=== PATIENT | female | born 1970 | race Caucasian/White ===

== ENCOUNTER → 2016-04-01 | Outpatient (CLI) | payer OTHER, MEDICARE ==
--- NOTE | 2016-04-02 07:52 | XR ---
EXAMINATION TYPE: XR wrist complete RT DATE OF EXAM: 04/01/2016 1:21 PM CLINICAL HISTORY: pain TECHNIQUE: Frontal, lateral and oblique images of the right wrist are obtained. COMPARISON: None. FINDINGS: There is no acute fracture/dislocation evident. The joint spaces appear within normal limits. The o verlying soft tissue appears unremarkable. IMPRESSION: There is no acute fracture or dislocation seen. ICD 10 NO FRACTURE, INITIAL EVALUATION
== END | disposition home or self-care (01) ==
LOC: RADXRYALE 13:06
PROVIDERS: ATTEND Internal Medicine
DX: M25.531 Pain in right wrist (principal)

== ENCOUNTER → 2016-05-31 | Outpatient (CLI) | payer OTHER, MEDICARE ==
--- NOTE | 2016-05-31 10:04 | MM ---
Reason for exam: additional evaluation requested from prior study. Last mammogram was performed 1 year and 3 months ago. History: Patient is postmenopausal. Family history of breast cancer in mother, breast cancer in grandmother, and breast cancer in aunt. 2 benign excisional biopsies of the left breast, 2005. Took hormonal contraceptives for 11 years beginning at age 13. Physical Findings: Nurse did not find any significant physical abnormalities on exam. MG 3D Diag Mammo W/Cad GHADA Bilateral CC and MLO view(s) were taken. Prior study comparison: March 07, 2015, bilateral MG 3d screening mammo w/cad. February 12, 2013, CAD bilateral diagnostic mammogram. There are scattered fibroglandular densities. No significant new findings when compared with previous films. These results were verbally communicated with the patient and result sheet given to the patient on 05/31/16. ASSESSMENT: Benign, BI-RAD 2 RECOMMENDATION: Routine screening mammogram of both breasts in 1 year. Manage patient on a clinical basis.
== END | disposition home or self-care (01) ==
LOC: RADMAMWWP 08:54
PROVIDERS: ATTEND Internal Medicine
DX: R92.8 Other abnormal and inconclusive findings on diagnostic imaging of breast (principal)
CPT/HCPCS: G0204; G0279

== ENCOUNTER → 2016-06-04 | Outpatient (CLI) | payer OTHER, MEDICARE ==
--- NOTE | 2016-06-07 07:06 | XR ---
EXAMINATION TYPE: XR pelvis AP view DATE OF EXAM: 06/04/2016 9:26 AM CLINICAL HISTORY: Pelvic with chronic hip and back pain. TECHNIQUE: A single AP view of the pelvis is obtained. COMPARISON: None. FINDINGS: There is no acute fracture/dislocation evident in the pelvis. The hip and sacroiliac join ts appear symmetric and unremarkable. The pubic symphysis is maintained. Tubal ligation clips overlie the pelvis. Surgical changes lumbosacral junction with disc material is present. IMPRESSION: There is no acute fracture or dislocation in the pelvis. No suspicious degenerative rodriguez ges are present.
--- NOTE | 2016-06-07 07:08 | XR ---
EXAMINATION TYPE: XR lumbar spine 2 or 3V DATE OF EXAM: 06/04/2016 9:26 AM CLINICAL HISTORY: Chronic low back pain. TECHNIQUE: Frontal and lateral images of the lumbar spine are obtained. COMPARISON: Prior lumbar spine x-ray November 24, 2013 FINDINGS: There are 5 lumbar type vertebral bodies identified. The lumbar spine redemonstrates sati sfactory alignment without evidence of acute fracture or dislocation. There is interval removal of po sterior fusion hardware L5-S1 level. Laminectomy defects and spinous process resection L5 level is re demonstrated. Artificial disc material at this level is stable. Vertebral body heights heights are wi thin normal limits. There is mild disc space narrowing upper lumbar levels. There is mild to moderat e disc space narrowing with endplate sclerosis and spurring at T12-L1 level. Cholecystectomy clips ar e noted in overlying soft tissue. Tubal ligation clips overlie the pelvis. IMPRESSION: Interval removal of posterior fusion hardware at lumbosacral junction. Stable multilevel degenerative changes in the upper lumbar spine are seen as detailed above.
== END ==
LOC: RADXRYALE 09:02
PROVIDERS: ATTEND Neurological Surgery
DX: M25.559 Pain in unspecified hip (principal); M47.816 Spondylosis without myelopathy or radiculopathy, lumbar region; Z98.1 Arthrodesis status
CPT/HCPCS: 72100; 72170

== ENCOUNTER → 2016-07-26 | Outpatient (CLI) | payer OTHER, MEDICARE ==
--- NOTE | 2016-07-26 10:45 | USB ---
Reason for exam: follow-up at short interval from prior study. History: Patient is postmenopausal. Family history of breast cancer in mother, breast cancer in grandmother, and breast cancer in aunt. 2 benign excisional biopsies of the left breast, 2005. Took hormonal contraceptives for 11 years beginning at age 13. Physical Findings: Nurse did not find any significant physical abnormalities on exam. US Breast Limited BILAT Right breast ultrasound includes all four quadrants, the retroareolar region and axilla. Finding demonstrates a 7 x 4 x 6mm oval, cystic lesion at 6 o'clock, a 5 x 3 x 5mm oval, cystic lesion at 8 o'clock and a 4 x 4mm oval, lymph node at 10 o'clock. Left breast ultrasound demonstrates no cystic or solid lesion seen. These results were verbally communicated with the patient and result sheet given to the patient on 07/26/16. ASSESSMENT: Benign, BI-RAD 2 RECOMMENDATION: Clinical management of both breasts. Manage patient on a clinical basis.
== END | disposition home or self-care (01) ==
LOC: RADUSWWP 09:15
PROVIDERS: ATTEND Internal Medicine
DX: R92.8 Other abnormal and inconclusive findings on diagnostic imaging of breast (principal)

== ENCOUNTER → 2019-01-02 | Outpatient (CLI) | payer OTHER, MEDICARE ==
--- NOTE | 2019-01-02 11:30 | US ---
EXAMINATION TYPE: US transvaginal DATE OF EXAM: 01/02/2019 COMPARISON: Pelvic ultrasound dated 11/12/2009 CLINICAL HISTORY: N83.209 CYST OF OVARY. hysterectomy, recent MRI at showed 5cm ov cyst, no pelvi c pain. TECHNIQUE: TV. Transvaginal sonographic images Date of LMP: hysterectomy EXAM MEASUREMENTS: Uterus: Surgically absent Endometrial Stripe: Surgically absent Right Ovary: 7.0 x 5.0 x 4.4 cm Left Ovary: 3.0 x 2.2 x 2.0 cm 1. Uterus: Surgically absent 2. Endometrium: Surgically absent 3. Right Ovary: The right ovary contains numerous follicles versus a single complex right ovarian mul ticystic mass with numerous septations measuring at least 5.7 x 5.4 x 4.7cm with some loculated compo nents containing internal debris. Solid vascular component measuring 2.8cm on image 27/37. 4. Left Ovary: 2.4 x 1.8 x 1.6cm complex cyst seen Spectral, color and waveform doppler imaging shows good arterial and venous flow within the ovaries ; there is no evidence for ovarian torsion. 5. Bilateral Adnexa: WNL 6. Posterior cul-de-sac: WNL IMPRESSION: 1. Complex at least 5.7 cm with a solid nodule and numerous internal septations versus numerous folli cles. Contrast enhanced MRI is recommended as well as surgical/oncological consultation. 2. Complex left ovarian lesion measuring 2.3 cm appears as a hemorrhagic cyst or endometrioma. 3. Surgical absence of the uterus.
== END | disposition home or self-care (01) ==
LOC: RADUSWWP 09:56
PROVIDERS: ATTEND Internal Medicine
DX: N83.9 Noninflammatory disorder of ovary, fallopian tube and broad ligament, unspecified (principal); Z90.710 Acquired absence of both cervix and uterus
CPT/HCPCS: 76830

== ENCOUNTER → 2019-01-19 | Outpatient (CLI) | payer OTHER, MEDICARE ==
--- NOTE | 2019-01-19 14:20 | MM ---
Reason for exam: screening (asymptomatic). Last mammogram was performed 2 years and 8 months ago. History: Patient is postmenopausal. Family history of breast cancer in mother, breast cancer in grandmother, and breast cancer in aunt. 2 benign excisional biopsies of the left breast, 2005. Took hormonal contraceptives for 11 years beginning at age 13. Physical Findings: A clinical breast exam by your physician is recommended on an annual basis and results should be correlated with mammographic findings. MG 3D Screening Mammo W/Cad Bilateral CC and MLO view(s) were taken. Prior study comparison: May 31, 2016, bilateral MG 3d diag mammo w/cad GHADA. March 07, 2015, bilateral MG 3d screening mammo w/cad. There are scattered fibroglandular densities. No suspicious abnormality. No significant changes when compared with prior studies. ASSESSMENT: Negative, BI-RAD 1 RECOMMENDATION: Routine screening mammogram of both breasts in 1 year.
== END | disposition home or self-care (01) ==
LOC: RADMAMWWP 10:58
PROVIDERS: ATTEND Internal Medicine
DX: Z12.31 Encounter for screening mammogram for malignant neoplasm of breast (principal)
CPT/HCPCS: 77063; 77067

== ENCOUNTER → 2019-01-26 | Outpatient (CLI) | payer OTHER, MEDICARE ==
--- NOTE | 2019-01-26 15:33 | MR ---
EXAMINATION TYPE: MR pelvis wo/w con DATE OF EXAM: 01/26/2019 12:08 PM COMPARISON: Pelvic ultrasound dated 01/02/2019 HISTORY: Unspecified ovarian cyst, right side TECHNIQUE: Multiplanar multiecho imaging of the pelvis was performed without and subsequently with i ntravenous contrast. Contrast used was 7.5 mL of Gadavist. FINDINGS: Motion artifact limits imaging. Corresponding to the complex mass of the ultrasound of 01/02/2019 within the right ovary there is a h eterogenous complex 5.8 x 3.3 x 4.1 cm mass of the right ovary with numerous internal septations. Int ernal cystic and hemorrhagic components are seen with some areas that are T1 hyperintense on precontr ast imaging and some that are hypointense. T2 hyperintense cystic components are seen on sagittal T2 image 22. Enhancement of one of the septations is also seen on sagittal fat-sat postcontrast T1-weigh faisal image 22 and nodular enhancement of mural nodules on image 20 and image 21. There is also nodular enhancement anteriorly on image 26. Coronal T2 fat sat image 26 demonstrates the numerous internal s eptations. Surgical clips within the left hemipelvis creates susceptibility artifact partially limiting evaluati on of the left ovary. No gross evidence of abnormal contrast enhancement is seen on postcontrast imag es of the left ovary. Left ovary appears to measure approximately 2.1 x 2.9 cm. It is difficult to as sess whether there is T2 shading to evaluate for endometrioma. Given the adjacent susceptibility kathy fact and obscuration. Few sigmoid diverticula are seen. There are mild degenerative changes of the hips. Degenerative disc disease at L5-S1 is noted. IMPRESSION: 1. Confirmation of a suspicious complex mass of the right ovary with enhancement of few internal sept ations and 2 enhancing mural nodules. This measures up to 5.8 cm. [employer] surgical oncologic consultat ion is again recommended. 2. Left ovary is largely obscured by susceptibility artifact from surgical clips in the left hemipelv is. The possible hemorrhagic cyst or endometrioma is not well-visualized that was seen on the ultraso und of 01/02/2019.
== END | disposition home or self-care (01) ==
LOC: RADMRIMAIN 10:45
PROVIDERS: ATTEND Internal Medicine
DX: N83.201 Unspecified ovarian cyst, right side (principal)
CPT/HCPCS: 72197; A9585

== ENCOUNTER → 2019-09-05 | Outpatient (CLI) | payer OTHER, MEDICARE ==
--- NOTE | 2019-09-05 13:51 | MR ---
EXAMINATION TYPE: MR lumbar spine wo con DATE OF EXAM: 09/05/2019 COMPARISON: Prior MRI lumbar spine August 24, 2013. Prior lumbar spine x-ray June 04, 2016. HISTORY: Stenosis TECHNIQUE: Multiplanar, multisequence imaging of the lumbar spine is performed without IV contrast. FINDINGS: Sagittal images of the lumbar spine show vertebral body heights and alignment to remain sat isfactory. Multilevel disc desiccation with progression from 2014 MRI. There is artifact from artifi cial disc material L5-S1 level otherwise disc space heights are well-maintained. The conus medullaris remains normal in position and signal ending at L1 level. The bone marrow signal intensity is withi n normal limits. Axial images at the T12-L1 level shows mild broad-based disc bulge minimally effacing the anterior th ecal sac new from prior. Axial images at the L1-L2 level show [id number] broad disc bulge mildly effacing the anterior t hecal sac from prior single sagittal image 8. Axial images at L2-L3 level show mild broad disc bulge mildly effacing the anterior thecal sac from p rior. Axial images at L3-L4 level show mild broad disc bulge mildly effaces the anterior thecal sac with mi ld facet degenerative changes bilaterally. Progression in findings from prior study noted. Axial images at L4-L5 level show moderate right greater than left facet degenerative changes progress ed from prior with moderate broad-based posterior disc protrusion progressed from prior. There is min imal effacement of the anterior thecal sac. There is moderate left and mild right-sided anterior infe rior neural foraminal narrowing. Encroachment in the exiting left L4 nerve is thought present axial i mage 13 and sagittal image 3 on current study. Correlate clinically. Axial images at the L5-S1 level show artifact from disc material. There are left sided laminectomy de fect and spinous process resection. Left-sided scar tissue is seen. Spinal canal is preserved. Modera te facet degenerative changes bilaterally show interval progression. Marginal spurring causes moderat e greater than right neural foraminal narrowing. No suspicious incidental retroperitoneal findings. IMPRESSION: Increasing multilevel degenerative changes as detailed above with particular attention to the L4-L5 level with disc herniation appears to be encroaching on the exiting left L4 nerve.
== END | disposition home or self-care (01) ==
LOC: RADMRIMAIN 12:50
PROVIDERS: ATTEND Neurological Surgery
DX: M48.061 Spinal stenosis, lumbar region without neurogenic claudication (principal); M48.07 Spinal stenosis, lumbosacral region; M51.26 Other intervertebral disc displacement, lumbar region; M47.896 Other spondylosis, lumbar region
CPT/HCPCS: 72148

== ENCOUNTER → 2019-12-27 | Outpatient (CLI) | payer OTHER, MEDICARE ==
--- NOTE | 2019-12-27 17:06 | XR ---
EXAMINATION TYPE: XR lumbar spine 2 or 3V DATE OF EXAM: 12/27/2019 COMPARISON: 06/04/2016 HISTORY: Intractable back pain TECHNIQUE: Three-view lumbar spine FINDINGS: No acute changes are evident. Postsurgical changes are present L4-5. Laminectomy L3-L5 is e vident. A minimal retrolisthesis of L2 on L3 is present. There is disc spacers at L4-5 and L5-S1. Melida tebral body heights appear preserved. Disc narrowing is present posteriorly L3-4 and L2-3 IMPRESSION: 1. Degenerative disc changes L2-3 L3-4. 2. Minimal retrolisthesis of L2 on L3, present previously. 3. Postsurgical changes L4-5 with laminectomy at L3-L5
== END | disposition home or self-care (01) ==
LOC: RADXRMAIN 10:41
PROVIDERS: ATTEND Neurological Surgery
DX: M51.36 Other intervertebral disc degeneration, lumbar region (principal); M43.16 Spondylolisthesis, lumbar region; Z98.890 Other specified postprocedural states; Z98.1 Arthrodesis status
CPT/HCPCS: 72100

== ENCOUNTER → 2020-04-21 | Outpatient (CLI) | payer OTHER, MEDICARE ==
--- NOTE | 2020-04-22 09:52 | MM ---
Reason for exam: screening (asymptomatic). Last mammogram was performed 1 year and 3 months ago. History: Patient is postmenopausal. Family history of breast cancer in mother, breast cancer in grandmother, and breast cancer in aunt. 2 benign excisional biopsies of the left breast, 2005. Took hormonal contraceptives for 11 years beginning at age 13. Physical Findings: A clinical breast exam by your physician is recommended on an annual basis and results should be correlated with mammographic findings. MG 3D Screening Mammo W/Cad Bilateral CC and MLO view(s) were taken. Prior study comparison: January 19, 2019, bilateral MG 3d screening mammo w/cad. May 31, 2016, bilateral MG 3d diag mammo w/cad GHADA. The breast tissue is heterogeneously dense. This may lower the sensitivity of mammography. There is no discrete abnormality. No significant changes when compared with prior studies. ASSESSMENT: Negative, BI-RAD 1 RECOMMENDATION: Routine screening mammogram of both breasts in 1 year.
== END | disposition home or self-care (01) ==
LOC: RADMAMWWP 09:42
PROVIDERS: ATTEND Internal Medicine
DX: Z12.31 Encounter for screening mammogram for malignant neoplasm of breast (principal)
CPT/HCPCS: 77063; 77067

== ENCOUNTER → 2020-06-12 | Outpatient (CLI) | payer OTHER, MEDICARE ==
--- NOTE | 2020-06-12 12:34 | XR ---
EXAMINATION TYPE: XR thoracic spine complete DATE OF EXAM: 06/12/2020 CLINICAL HISTORY: pain TECHNIQUE: Frontal, lateral, and swimmer's view of thoracic spine are obtained. COMPARISON: None. FINDINGS: Thoracic spine show satisfactory alignment without evidence of acute fracture or dislocatio n. Vertebral body heights are preserved. Mild scattered degenerative disc space narrowing and spondy losis. Visualized ribs are unremarkable. IMPRESSION: No acute fracture or dislocation is seen in the thoracic spine. ICD 10 NO FRACTURE, INIT IAL EVALUATION
--- NOTE | 2020-06-12 12:36 | XR ---
EXAMINATION TYPE: XR lumbar spine 2 or 3V DATE OF EXAM: 06/12/2020 CLINICAL HISTORY: 12/27/2019 TECHNIQUE: Three views of the lumbar spine are submitted. COMPARISON: None. FINDINGS: Postoperative changes of lumbar laminectomy and fusion at L4-5 and L5-S1. Pedicular screws in place. Intervertebral body stabilizer's are noted. Overall no change from prior examination. IMPRESSION: Stable postoperative appearance of the lumbar spine.
== END | disposition home or self-care (01) ==
LOC: RADXRMAIN 10:23
PROVIDERS: ATTEND Neurological Surgery
DX: M54.6 Pain in thoracic spine (principal)
CPT/HCPCS: 72072; 72100

== ENCOUNTER → 2020-08-20 | Outpatient (CLI) | payer OTHER, MEDICARE ==
--- NOTE | 2020-08-20 16:31 | XR ---
EXAMINATION TYPE: XR wrist complete LT DATE OF EXAM: 08/20/2020 CLINICAL HISTORY: Pain in the scaphoid area after fall 3 weeks ago TECHNIQUE: Frontal, lateral and oblique images of the left wrist are obtained. COMPARISON: None. FINDINGS: No evidence of acute fracture or dislocation of the left wrist. The distal radius, ulna, ca rpals and proximal metacarpals are in alignment. Soft tissues are unremarkable. No radiopaque foreign body. IMPRESSION: 1. No evidence of fracture or dislocation of the left wrist.
== END | disposition home or self-care (01) ==
LOC: RADXRYALE 09:30
PROVIDERS: ATTEND Internal Medicine
DX: M25.532 Pain in left wrist (principal); W19.XXXA Unspecified fall, initial encounter

== ENCOUNTER → 2021-06-15 | Outpatient (CLI) | payer MEDICARE | END | disposition home or self-care (01) | LOC: LABWHC1 10:35 | PROVIDERS: ATTEND Nurse Practitioner | DX: R00.2 Palpitations (principal) | CPT/HCPCS: 36415; 84443 ==

== ENCOUNTER → 2021-08-27 | Outpatient (CLI) | payer MEDICARE ==
--- NOTE | 2021-08-28 05:13 | MR ---
EXAMINATION TYPE: MR knee RT wo con DATE OF EXAM: 08/27/2021 COMPARISON: None HISTORY: UNILATERAL PRIMARY OSTEOARTHRITIS,RIGHT KNEE Multiplanar multi echo imaging of the right knee with no contrast. There is moderate edema in the subcutaneous fat around the knee. There is edema and fluid anterior to the patella. This could be patella bursitis. The anterior and posterior cruciate ligaments are intact. There is knee joint effusion. There is hori zontal tear through the posterior horn of the lateral meniscus. There is extensive tear of the anteri or horn of the lateral meniscus. There is small intrasubstance horizontal tear of the posterior horn medial meniscus. The medial collateral ligament is intact. There is some thickening and edema in the lateral collatera l ligament. No fracture seen. There is minimal spurring of the femoral and tibial condyles. IMPRESSION: Complex tears of the anterior and posterior horn of the lateral meniscus. Small intrasubstance tear p osterior horn medial meniscus. Knee joint effusion. Fluid anterior to the patella consistent with patellar bursitis. There is eviden ce of significant tear of the lateral collateral ligament.
== END | disposition home or self-care (01) ==
LOC: RADMRIMAIN 11:08
PROVIDERS: ATTEND Orthopaedic Surgery
DX: S83.421A Sprain of lateral collateral ligament of right knee, initial encounter (principal); S83.281A Other tear of lateral meniscus, current injury, right knee, initial encounter; S83.241A Other tear of medial meniscus, current injury, right knee, initial encounter

== ENCOUNTER → 2021-10-15 | Outpatient (CLI) | payer MEDICARE ==
--- NOTE | 2021-10-15 14:22 | US ---
EXAMINATION TYPE: US venous doppler duplex LE RT DATE OF EXAM: 10/15/2021 9:28 AM COMPARISON: NONE CLINICAL HISTORY: 51-year-old female I80.9 THROMBOPHLEBITIS. Patient had knee surgery on 08/26/21. No h x of DVT. SIDE PERFORMED: Right TECHNIQUE: The lower extremity deep venous system is examined utilizing real time linear array sonog shelby with graded compression, doppler sonography and color-flow sonography. FINDINGS: VESSELS IMAGED: Common Femoral Vein Deep Femoral Vein Greater Saphenous Vein * Femoral Vein Popliteal Vein Small Saphenous Vein * Proximal Calf Veins (* superficial vessels) Right Leg: No evidence of DVT in veins imaged at this time. Limited visibility of peroneal veins at the ankle level due to edema. IMPRESSION: Some limitation at the ankle due to soft tissue swelling. Otherwise, no evidence for DVT within the r ight lower extremity.
== END | disposition home or self-care (01) ==
LOC: RADUSWWP 09:02
PROVIDERS: ATTEND Orthopaedic Surgery
DX: M17.11 Unilateral primary osteoarthritis, right knee (principal); I80.9 Phlebitis and thrombophlebitis of unspecified site; M22.2X1 Patellofemoral disorders, right knee; F17.210 Nicotine dependence, cigarettes, uncomplicated; E78.5 Hyperlipidemia, unspecified; I51.9 Heart disease, unspecified; Z68.33 Body mass index [BMI] 33.0-33.9, adult; Z48.89 Encounter for other specified surgical aftercare

== ENCOUNTER → 2023-05-16 | Outpatient (CLI) | payer MEDICARE ==
--- NOTE | 2023-05-16 11:00 | CT ---
EXAMINATION TYPE: CT pelvis wo con DATE OF EXAM: 05/16/2023 COMPARISON: Radiograph same day HISTORY: 52-year-old female M48.07, SPINAL STENOSIS, LUMBOSACRAL REGION TECHNIQUE: Contiguous axial scanning of the pelvis without IV contrast. Coronal and sagittal reconstr uctions performed. 3-D reconstructions generated on a dedicated independent workstation. CT DLP: 584 mGycm Automated exposure control for dose reduction was used. FINDINGS: Lying cecum. Prominent fluid-filled small bowel loops seen low in the pelvis. Uterus appears surgical ly absent. L4-L5 and L5-S1 interbody fusion changes are demonstrated. Corresponding laminectomy and hypertrophic facet arthropathy. Lumbar spine is incompletely visualized. Sacrum and SI joints appear intact. Hips appear symmetric and intact as does the pubic symphysis. No acute fracture is seen. IMPRESSION: 1. PARTIAL VISUALIZATION OF PREVIOUS LUMBAR SURGERY WITH L4-L5 AND L5-S1 INTERBODY DEVICES AND CORRES PONDING LAMINECTOMIES. THERE ARE SCREW TRACTS FROM PRIOR POSTERIOR FUSION HARDWARE REMOVAL. 2. PROMINENT FLUID-FILLED SMALL BOWEL LOOPS and HANGING LOW IN THE PELVIS. CONSIDER A MILD ENTERITIS. 3. OTHERWISE, NO SPECIFIC ABNORMALITY SEEN ON PELVIC CT.
--- NOTE | 2023-05-16 21:57 | XR ---
EXAMINATION TYPE: XR Hip Bilateral and AP pelvis DATE OF EXAM: 05/16/2023 COMPARISON: 06/04/2016 HISTORY: SI joint pain right radiating anterior femur TECHNIQUE: Two-view bilateral hips supplemented with AP pelvis FINDINGS: Sacroiliac joints are patent. Right femoral head articulates with the acetabulum. Joint spa ce is preserved. Left hip femoral head articulates with the acetabulum. Joint space is preserved. No acute osseous abnormality radiographically apparent. IMPRESSION: 1. No acute osseous abnormalities bilateral hips
--- NOTE | 2023-05-17 10:31 | MR ---
EXAMINATION TYPE: MR lumbar spine wo con DATE OF EXAM: 05/16/2023 11:28 AM CLINICAL INDICATION:Female, 52 years old with history of M48.07 spinal stenosis, Lower back pain, RLE radiculopathy. COMPARISON: 09/05/2019 TECHNIQUE: Multi planar, multi sequence imaging was performed utilizing: T1-weighted, T2-weighted, a nd turbo inversion recovery imaging of the lumbar spine. IV Contrast: (None if empty) FINDINGS: Alignment: The lumbar vertebral bodies have preserved heights with grade 1 anterolisthesis L3 on L4. Cord: The conus medullaris and the distal spinal cord appear unremarkable with regards to their signa l intensity and morphology. Bones/Discs: Mild degeneration changes throughout the spine with osteophyte formation and facet joint arthropathy. Intervertebral disc signal is maintained. T12-L1: No evidence of significant spinal canal stenosis or neural foraminal stenosis. L1-L2: No evidence of significant spinal canal stenosis or neural foraminal stenosis. L2-L3: Disc bulge and facet joint arthropathy result in mild spinal canal and moderate to severe righ t and moderate left neural foraminal stenosis. L3-L4: Disc bulge and facet joint arthropathy result in mild spinal canal and severe bilateral neural foraminal stenosis. L4-L5: Discectomy with facet joint arthropathy with mild to moderate bilateral neural foraminal steno sis. L5-S1: Discectomy at this level no significant spinal canal stenosis. Facet joint arthropathy with se joshua left neural foraminal stenosis. No significant spinal canal or neural foraminal stenosis in the remainder of the visualized levels. Other findings: None. IMPRESSION: 1. Postsurgical changes with no evidence for significant spinal canal stenosis. Grade 1 anterolisthe sis of L3 on L4 resulting in severe bilateral neural foraminal stenosis. 2. Additional Degeneration changes with no from stenosis worse at L5-S1 severe left and moderate to severe right L2-L3 neural foraminal stenosis.
== END | disposition home or self-care (01) ==
LOC: RADCTMAIN 09:49
PROVIDERS: ATTEND Neurological Surgery
DX: M48.07 Spinal stenosis, lumbosacral region (principal); M46.1 Sacroiliitis, not elsewhere classified; M25.551 Pain in right hip; Z98.1 Arthrodesis status
CPT/HCPCS: 72148; 72192; 73521

== ENCOUNTER → 2024-06-22 | Outpatient (CLI) | payer MEDICARE ==
--- NOTE | 2024-06-22 16:02 | XR ---
EXAMINATION TYPE: XR hand limited LT DATE OF EXAM: 06/22/2024 CLINICAL INDICATION: Female, 53 years old with history of R20.0 ANESTHESIA OF SKIN Z98.890 OTHER SPEC IFIED P, pain TECHNIQUE: Frontal and lateral images of the left hand are obtained. COMPARISON: None. FINDINGS: There is no acute displaced fracture evident in the left hand. There is moderate to severe degenerative changes base of first metacarpal. Joint spaces in the fingers are maintained. The overl stoney soft tissue appears unremarkable. IMPRESSION: As above. [facility], , 06/22/2024 3:59 PM
== END | disposition home or self-care (01) ==
LOC: RADXRMAIN 15:34
PROVIDERS: ATTEND Neurological Surgery
DX: M18.12 Unilateral primary osteoarthritis of first carpometacarpal joint, left hand (principal); Z98.890 Other specified postprocedural states

== ENCOUNTER → 2024-07-31 | Outpatient (CLI) | payer MEDICARE ==
--- NOTE | 2024-07-31 09:07 | MM ---
Reason for Exam: Screening (asymptomatic). Last mammogram was performed 4 year(s) and 3 month(s) ago. Patient History: Menarche at age 11. First Full-Term at age 18. Hysterectomy at age 40. Postmenopausal. Hormonal Contraceptives for 11 years from age 13 until age 24. 2006, Benign Excisional Biopsy on the left side. 2006, Benign Excisional Biopsy on the left side. Maternal grandmother had breast cancer. Maternal aunt had breast cancer. Mother had breast cancer. Risk Values: Yolande 5 year model risk: 3.2%. NCI Lifetime model risk: 24.2%. Prior Study Comparison: 05/31/2016 Bilateral Diagnostic Mammogram, [facility]. 01/19/2019 Bilateral Screening Mammogram, [facility]. 04/21/2020 Bilateral Screening Mammogram, [facility]. Tissue Density: There are scattered areas of fibroglandular density. Findings: Analyzed By CAD. Benign appearing bilateral axillary lymph nodes are redemonstrated. There is no suspicious group of microcalcifications or new suspicious mass in either breast. Overall Assessment: Negative, BI-RAD 1 Management: Screening Mammogram of both breasts in 1 year. . Patient should continue monthly self-breast exams. A clinical breast exam by your physician is recommended on an annual basis. This exam should not preclude additional follow-up of suspicious palpable abnormalities. Note on Yolande scores and lifetime risk: 1. A Yolande score greater than 3% is considered moderate risk. If this is the case, consider specialist referral to assess eligibility for a risk reducing agent. 2. If overall lifetime risk for the development of breast cancer is 20% or higher, the patient may qualify for future screening with alternating mammogram and breast MRI. [facility], , 07/31/2024 9:04 AM. Electronically signed and approved by: Bryan Rocha M.D.
== END | disposition home or self-care (01) ==
LOC: RADMAMWWP 08:08
PROVIDERS: ATTEND Internal Medicine
DX: Z12.31 Encounter for screening mammogram for malignant neoplasm of breast (principal); R92.323 Mammographic fibroglandular density, bilateral breasts; Z78.0 Asymptomatic menopausal state; Z80.3 Family history of malignant neoplasm of breast
CPT/HCPCS: 77063; 77067